=== PATIENT | male | born 1975 | race African-American/Black ===

== ENCOUNTER 2022-10-06 11:22 | Inpatient (IN) | payer OTHER ==
[2022-10-06 12:15] VITALS: BMI 34.5
[2022-10-06] MEDS ORDERED: POLYETHYLENE GLYCOL (HEALTHYLAX) 3350 17 GM PACKET PO PRN (14:07)
[2022-10-06] MEDS ORDERED: ONDANSETRON *ODT* 4 MG TABLET SL PRN (14:07)
[2022-10-06] MEDS ORDERED: MAG HYDROX/AL HYDROX/SIMETH 30 ML UNIT-DOSE CUP PO PRN (14:07)
[2022-10-06] MEDS ORDERED: BENZOCAINE/MENTHOL (CHLORASEPTIC ) LOZENGE MM PRN (14:07)
[2022-10-06] MEDS ORDERED: IBUPROFEN 400 MG TABLET (FP) PO PRN (14:07)
[2022-10-06] MEDS ORDERED: NALOXONE HCL 0.4 MG/ML VIAL IM PRN (14:07)
[2022-10-06] MEDS ORDERED: LOPERAMIDE HCL 2 MG CAPSULE PO PRN (14:07)
[2022-10-06] MEDS ORDERED: BENZONATATE 200 MG CAPSULE PO PRN (14:07)
[2022-10-06] MEDS ORDERED: NALOXONE HCL (KLOXXADO) 8 MG SPRAY NS PRN (14:07)
[2022-10-06] MEDS ORDERED: ACETAMINOPHEN 325 MG TABLET (FP) PO PRN (14:07)
[2022-10-06] MEDS ORDERED: chlordiazePOXIDE HCL 25 MG CAPSULE PO PRN (14:07)
[2022-10-06] MEDS ORDERED: DICYCLOMINE HCL 10 MG CAPSULE PO PRN (14:07)
[2022-10-06] MEDS ORDERED: BISMUTH SUBSALICYLATE 524 MG/30 ML PO PRN (14:07)
[2022-10-06] MEDS ORDERED: guaiFENesin 600 MG TABLET.ER (FP) PO PRN (14:07)
[2022-10-06] MEDS ORDERED: MAGNESIUM HYDROX 2400MG/30ML ORAL SUSPENSION 30 ML CUP PO PRN (14:07)
[2022-10-06] MEDS ORDERED: NICOTINE 10 MG CARTRIDGE (INHALER) IH PRN (14:07)
[2022-10-06] MEDS ORDERED: IBUPROFEN 600 MG TABLET (FP) PO ONE (17:04)
[2022-10-06] MEDS: IBUPROFEN 600 MG TABLET (FP) PO PRN (17:07)
[2022-10-06] MEDS: chlordiazePOXIDE HCL 25 MG CAPSULE PO SCH ×2 (17:12→22:23)
[2022-10-06] MEDS: PRENATAL VITAMINS W/ FOLIC ACID TABLET (FP) PO SCH (17:51)
[2022-10-06 18:15] LABS: HEMATOCRIT 40.3 % (35.4-49); HEMOGLOBIN 13.9 GM/dL (11.7-16.9); MCH 30.6 pg (25.7-33.7); MCHC 34.5 g/dl (32.0-35.9); MEAN CELL VOLUME 88.6 fl (80-96); MEAN PLT VOLUME 9.6 fl (7.5-11.1); PLATELET COUNT 169 10^3/uL (134-434); RBC 4.55 M/mm3 (4.00-5.60); RDW 14.4 % (11.9-15.9); WHITE BLOOD COUNT 5.8 K/mm3 (4.0-10.0)
[2022-10-06 18:26] LABS: CALCIUM 8.3 mg/dL (8.5-10.1)
[2022-10-06 18:27] LABS: ALBUMIN 3.1 g/dl (3.4-5.0); BLOOD UREA NITROGEN 16.5 mg/dL (7-18)
[2022-10-06 18:30] LABS: CREATININE 1.2 mg/dL (0.55-1.3)
[2022-10-06 18:32] LABS: BILIRUBIN,TOTAL 0.3 mg/dL (0.2-1); TOT PROT 6.3 g/dl (6.4-8.2)
[2022-10-06] MEDS: MELATONIN 5 MG TABLETS PO SCH (22:22)
[2022-10-06] MEDS: THIAMINE HCL 100 MG TABLET (FP) PO SCH (22:22)
[2022-10-07] MEDS: chlordiazePOXIDE HCL 25 MG CAPSULE PO SCH ×3 (06:00→17:25)
[2022-10-07] MEDS: PRENATAL VITAMINS W/ FOLIC ACID TABLET (FP) PO SCH (11:21)
[2022-10-07] MEDS: METHOCARBAMOL 500 MG TABLET PO PRN (11:21)
[2022-10-07] MEDS: THIAMINE HCL 100 MG TABLET (FP) PO SCH (22:37)
[2022-10-07] MEDS: MELATONIN 5 MG TABLETS PO SCH (22:37)
[2022-10-08] MEDS: chlordiazePOXIDE HCL 25 MG CAPSULE PO SCH ×5 (00:11→22:46)
[2022-10-08] MEDS: METHOCARBAMOL 500 MG TABLET PO PRN ×2 (08:55→22:26)
[2022-10-08] MEDS: IBUPROFEN 600 MG TABLET (FP) PO PRN (08:55)
[2022-10-08] MEDS: PRENATAL VITAMINS W/ FOLIC ACID TABLET (FP) PO SCH (10:25)
[2022-10-08] MEDS: PANTOPRAZOLE 20 MG TABLET PO SCH (16:54)
[2022-10-08] MEDS: hydrOXYzine PAMOATE 25 MG CAPSULE (FP) PO PRN (22:24)
[2022-10-08] MEDS: THIAMINE HCL 100 MG TABLET (FP) PO SCH (22:24)
[2022-10-08] MEDS: MELATONIN 5 MG TABLETS PO SCH (22:24)
[2022-10-09] MEDS ORDERED: chlordiazePOXIDE HCL 10 MG CAPSULE PO PRN
[2022-10-09] MEDS: chlordiazePOXIDE HCL 10 MG CAPSULE PO SCH ×4 (05:57→23:11)
[2022-10-09] MEDS: PRENATAL VITAMINS W/ FOLIC ACID TABLET (FP) PO SCH (10:00)
[2022-10-09] MEDS: PANTOPRAZOLE 20 MG TABLET PO SCH (10:00)
[2022-10-09] MEDS ORDERED: PANTOPRAZOLE 20 MG TABLET PO SCH (14:00)
[2022-10-09] MEDS ORDERED: PATIENT'S OWN MEDICATION (NON-FORMULARY) (Omeprazole 40 MG) PO ONE ×2 (14:47)
[2022-10-09] MEDS ORDERED: BACITRACIN 0.9 GM PACKET TP ONE (14:52)
[2022-10-09] MEDS: hydrOXYzine PAMOATE 25 MG CAPSULE (FP) PO PRN (17:53)
[2022-10-09] MEDS: BACITRACIN 0.9 GM PACKET TP SCH (23:12)
[2022-10-09] MEDS: MELATONIN 5 MG TABLETS PO SCH (23:12)
[2022-10-09] MEDS: THIAMINE HCL 100 MG TABLET (FP) PO SCH (23:12)
[2022-10-10] MEDS: chlordiazePOXIDE HCL 10 MG CAPSULE PO SCH ×2 (06:00→18:08)
[2022-10-10] MEDS: OMEPRAZOLE PO SCH (06:01)
[2022-10-10] MEDS: PRENATAL VITAMINS W/ FOLIC ACID TABLET (FP) PO SCH (10:50)
[2022-10-10] MEDS: BACITRACIN 0.9 GM PACKET TP SCH ×2 (10:50→22:09)
[2022-10-10 13:45] VITALS: RESP 18
[2022-10-10] MEDS: THIAMINE HCL 100 MG TABLET (FP) PO SCH (22:08)
[2022-10-11] MEDS ORDERED: chlordiazePOXIDE HCL 10 MG CAPSULE PO ONE (05:00)
[2022-10-11] MEDS: OMEPRAZOLE PO SCH (06:34)
[2022-10-11 09:26] VITALS: BP 149/93; PULSE 72; TEMP 97.6
[2022-10-11] MEDS: BACITRACIN 0.9 GM PACKET TP SCH (10:25)
[2022-10-11] MEDS: PRENATAL VITAMINS W/ FOLIC ACID TABLET (FP) PO SCH (10:25)
== END 2022-10-11 09:44 | disposition home or self-care (01) | DRG 773 ==
LOC: YASAS 11:22 → Y6N 16:50
PROVIDERS: ADMIT Allergy & Immunology; ATTEND Psychiatry & Neurology Pain Medicine
PROC: HZ2ZZZZ Detoxification Services for Substance Abuse Treatment (ICD-10-PCS; principal; 2022-10-06)
DX: F10.230 Alcohol dependence with withdrawal, uncomplicated (principal); F11.20 Opioid dependence, uncomplicated; F14.20 Cocaine dependence, uncomplicated; F17.210 Nicotine dependence, cigarettes, uncomplicated
CPT/HCPCS: 36415; 80053; 85027; 86780; C9803-CS; U0003; U0005

== ENCOUNTER 2024-07-10 11:18 | Inpatient (IN) | payer OTHER ==
[2024-07-10 11:53] VITALS: BMI 34.9
[2024-07-10] MEDS ORDERED: BISMUTH SUBSALICYLATE 524 MG/30 ML PO PRN (12:15)
[2024-07-10] MEDS ORDERED: guaiFENesin 600 MG TABLET.ER (FP) PO PRN (12:15)
[2024-07-10] MEDS ORDERED: P-EPHED 60MG/TRIPROLIDI 2.5MG TABLET PO PRN (12:15)
[2024-07-10] MEDS ORDERED: MAGNESIUM HYDROX 2400MG/30ML ORAL SUSPENSION 30 ML CUP PO PRN (12:15)
[2024-07-10] MEDS ORDERED: POLYETHYLENE GLYCOL (HEALTHYLAX) 3350 17 GM PACKET PO PRN (12:15)
[2024-07-10] MEDS ORDERED: NICOTINE POLACRILEX 2 MG LOZENGE BC PRN (12:15)
[2024-07-10] MEDS ORDERED: METHOCARBAMOL 500 MG TABLET PO PRN (12:15)
[2024-07-10] MEDS ORDERED: MAG HYDROX/AL HYDROX/SIMETH 30 ML UNIT-DOSE CUP PO PRN (12:15)
[2024-07-10] MEDS ORDERED: BENZONATATE 200 MG CAPSULE PO PRN (12:15)
[2024-07-10] MEDS ORDERED: BENZOCAINE/MENTHOL (CHLORASEPTIC ) LOZENGE MM PRN (12:15)
[2024-07-10] MEDS ORDERED: LOPERAMIDE HCL 2 MG CAPSULE PO PRN (12:15)
[2024-07-10] MEDS ORDERED: IBUPROFEN 400 MG TABLET (FP) PO PRN (12:15)
[2024-07-10] MEDS ORDERED: NICOTINE POLACRILEX 2 MG GUM BUC PRN (12:15)
[2024-07-10] MEDS: diazePAM 5 MG TABLET PO PRN (13:00)
[2024-07-10] MEDS ORDERED: diazePAM 5 MG TABLET ONE (13:00)
[2024-07-10] MEDS: PANTOPRAZOLE 20 MG TABLET PO SCH ×2 (13:51→14:15)
[2024-07-10] MEDS: ONDANSETRON *ODT* 4 MG TABLET SL PRN (15:01)
[2024-07-10] MEDS: diazePAM 5 MG TABLET PO SCH (17:16)
[2024-07-10] MEDS: DICYCLOMINE HCL 10 MG CAPSULE PO PRN (17:17)
[2024-07-10] MEDS: THIAMINE 100 MG TABLET PO SCH (22:11)
[2024-07-10] MEDS: MELATONIN 5 MG TABLETS PO SCH (22:11)
[2024-07-10] MEDS: hydrOXYzine PAMOATE 25 MG CAPSULE (FP) PO PRN (23:36)
[2024-07-10] MEDS: ACETAMINOPHEN 325 MG TABLET (FP) PO PRN (23:36)
[2024-07-10] MEDS: TRIMETHOBENZAMIDE HCL 200MG/2ML INJ IM ONE (23:47)
[2024-07-11 10:42] LABS: HEMATOCRIT 41.1 % (35.4-49); HEMOGLOBIN 14.1 GM/dL (11.7-16.9); MCH 31.8 pg (25.7-33.7); MCHC 34.4 g/dl (32.0-35.9); MEAN CELL VOLUME 92.6 fl (80-96); MEAN PLT VOLUME 8.7 fl (7.5-11.1); PLATELET COUNT 180 10^3/uL (134-434); RBC 4.43 M/mm3 (4.00-5.60); RDW 13.5 % (11.9-15.9); WHITE BLOOD COUNT 5.7 K/mm3 (4.0-10.0)
[2024-07-11 10:43] LABS: CHLORIDE 106 mmol/L (98-107); POTASSIUM 3.6 mmol/L (3.5-5.1); SODIUM 139 mmol/L (136-145)
[2024-07-11 10:54] LABS: ALBUMIN 3.1 g/dl (3.4-5.0); ANION GAP 6 mmol/L (4-13); BLOOD UREA NITROGEN 18.8 mg/dL (7-18); CALCIUM 8.7 mg/dL (8.5-10.1); CO2 26 mmol/L (21-32)
[2024-07-11 10:55] LABS: GLUCOSE,RANDOM 122 mg/dL (74-106)
[2024-07-11] MEDS: PRENATAL VITAMINS W/ FOLIC ACID TABLET (FP) PO SCH (10:55)
[2024-07-11 10:58] LABS: CREATININE 1.1 mg/dL (0.55-1.3); SGOT/AST 21 U/L (15-37); SGPT/ALT 48 U/L (13-61)
[2024-07-11 10:59] LABS: BILIRUBIN,TOTAL 0.7 mg/dL (0.2-1); TOT PROT 6.1 g/dl (6.4-8.2)
[2024-07-11 11:00] LABS: ALK PHOS 51 U/L (45-117)
[2024-07-11] MEDS: IBUPROFEN 600 MG TABLET (FP) PO PRN (11:06)
[2024-07-11 20:58] VITALS: TEMP 97.6
[2024-07-11 22:39] VITALS: BP 148/79; PULSE 79; RESP 18
[2024-07-12] MEDS: diazePAM 5 MG TABLET PO SCH (06:07)
[2024-07-13] MEDS ORDERED: diazePAM 5 MG TABLET PO SCH (06:00)
[2024-07-14] MEDS ORDERED: diazePAM 5 MG TABLET PO ONE (06:00)
== END 2024-07-12 08:32 | disposition short-term general hospital (02) | DRG 774 ==
LOC: YASAS 11:18 → Y6N 13:19
PROVIDERS: ADMIT Allergy & Immunology; ATTEND Allergy & Immunology
PROC: HZ2ZZZZ Detoxification Services for Substance Abuse Treatment (ICD-10-PCS; principal; 2024-07-10)
DX: F10.230 Alcohol dependence with withdrawal, uncomplicated (principal); F14.20 Cocaine dependence, uncomplicated; F17.210 Nicotine dependence, cigarettes, uncomplicated; F31.9 Bipolar disorder, unspecified; F43.10 Post-traumatic stress disorder, unspecified; K92.0 Hematemesis; K92.1 Melena; K21.9 Gastro-esophageal reflux disease without esophagitis; Z56.0 Unemployment, unspecified; Z59.00 Homelessness unspecified
CPT/HCPCS: 36415; 80053; 80305; 80307; 85027; 86780; 93005; 93010; Q0162

== ENCOUNTER 2024-07-11 23:40 | Inpatient (IN) | payer OTHER ==
[2024-07-12 00:11] VITALS: BMI 35.2
[2024-07-12] MEDS ORDERED: ACETAMINOPHEN INJECTION 100 ML ONE (01:08)
[2024-07-12] MEDS ORDERED: PANTOPRAZOLE SODIUM 80 MG/200 ML BAG IVPB ONE (01:08)
[2024-07-12] MEDS: ACETAMINOPHEN 1000 MG/100 ML BAG IVPB ONE (01:27)
[2024-07-12 01:37] LABS: BASO % 0.8 % (0-2.0); EOS % 1.8 % (0-4.5); HEMATOCRIT 40.2 % (35.4-49); HEMOGLOBIN 13.8 GM/dL (11.7-16.9); MCH 31.4 pg (25.7-33.7); MCHC 34.4 g/dl (32.0-35.9); MEAN CELL VOLUME 91.2 fl (80-96); MEAN PLT VOLUME 8.3 fl (7.5-11.1); NEUT % 52.4 % (42.8-82.8); PLATELET COUNT 199 10^3/uL (134-434); RBC 4.41 M/mm3 (4.00-5.60); RDW 13.4 % (11.9-15.9); WHITE BLOOD COUNT 6.5 K/mm3 (4.0-10.0)
[2024-07-12 01:55] LABS: POTASSIUM 4.5 mmol/L (3.5-5.1)
[2024-07-12 01:58] LABS: ALBUMIN 3.4 g/dl (3.4-5.0); CALCIUM 8.9 mg/dL (8.5-10.1)
[2024-07-12 01:59] LABS: BLOOD UREA NITROGEN 17.6 mg/dL (7-18)
[2024-07-12 02:03] LABS: BILIRUBIN,TOTAL 0.2 mg/dL (0.2-1); TOT PROT 6.9 g/dl (6.4-8.2)
[2024-07-12] MEDS: PANTOPRAZOLE SODIUM 40 MG VIAL IVPUSH ONE (02:14)
[2024-07-12] MEDS: LACTATED RINGERS SOLUTION 1000 ML INFUS.BAG IV ONE (03:38)
[2024-07-12 04:56] LABS: BASO % 0.7 % (0-2.0); EOS % 1.7 % (0-4.5); HEMATOCRIT 38.6 % (35.4-49); HEMOGLOBIN 13.3 GM/dL (11.7-16.9); LYMPH % 36.7 % (8-40); MCH 31.5 pg (25.7-33.7); MCHC 34.5 g/dl (32.0-35.9); MEAN CELL VOLUME 91.3 fl (80-96); MEAN PLT VOLUME 8.1 fl (7.5-11.1); MONO % 8.3 % (3.8-10.2); NEUT % 52.6 % (42.8-82.8); PLATELET COUNT 185 10^3/uL (134-434); RBC 4.23 M/mm3 (4.00-5.60); RDW 13.6 % (11.9-15.9); WHITE BLOOD COUNT 6.4 K/mm3 (4.0-10.0)
[2024-07-12 05:12] LABS: INR 0.98 (0.83-1.09); PROTHROMBIN TIME (PATIENT) 11.1 SEC (9.7-13.0)
[2024-07-12] MEDS ORDERED: diazePAM 5 MG TABLET PO PRN (05:21)
[2024-07-12] MEDS ORDERED: diazePAM CARPU-JECT 10 MG/2 ML DISP.SYRIN IVPUSH PRN ×2 (05:26→06:55)
[2024-07-12] MEDS ORDERED: ONDANSETRON 4 MG/2 ML VIAL IVPUSH PRN (05:28)
[2024-07-12 05:48] VITALS: RESP 18
[2024-07-12] MEDS: SODIUM CHLORIDE 1,000 ML IV SCH (05:57)
[2024-07-12] MEDS: morphine CARPU-JECT 4 MG/1 ML DISP.SYRIN IVPUSH ONE (06:41)
[2024-07-12] MEDS: DEXTROSE 5%-0.45% SALINE 1,000 ML IV SCH (06:41)
[2024-07-12] MEDS: diazePAM CARPU-JECT 10 MG/2 ML DISP.SYRIN IVPUSH ONE ×3 (06:58→16:14)
[2024-07-12] MEDS ORDERED: NICOTINE POLACRILEX 2 MG LOZENGE BC PRN (07:21)
[2024-07-12] MEDS: PANTOPRAZOLE SODIUM 40 MG VIAL IVPUSH SCH (09:15)
[2024-07-12] MEDS: THIAMINE HCL 200 MG/2 ML VIAL IVPB SCH (09:15)
[2024-07-12] MEDS: NICOTINE 21 MG/24 HOURS TOPICAL PATCH TD SCH (09:15)
[2024-07-12 15:55] VITALS: BP 129/74; PULSE 55; TEMP 98.4
[2024-07-12 16:31] LABS: HEMATOCRIT 42.3 % (35.4-49); HEMOGLOBIN 14.1 GM/dL (11.7-16.9); MCH 30.9 pg (25.7-33.7); MCHC 33.3 g/dl (32.0-35.9); MEAN CELL VOLUME 92.6 fl (80-96); MEAN PLT VOLUME 8.6 fl (7.5-11.1); PLATELET COUNT 212 10^3/uL (134-434); RBC 4.56 M/mm3 (4.00-5.60); RDW 13.1 % (11.9-15.9); WHITE BLOOD COUNT 6.1 K/mm3 (4.0-10.0)
[2024-07-12] MEDS ORDERED: diazePAM CARPU-JECT 10 MG/2 ML DISP.SYRIN IVPUSH ONE (22:00)
[2024-07-13] MEDS ORDERED: diazePAM 5 MG TABLET PO SCH (06:00)
[2024-07-14] MEDS ORDERED: diazePAM 5 MG TABLET PO SCH (06:00)
[2024-07-15] MEDS ORDERED: diazePAM 5 MG TABLET PO ONE (06:00)
== END 2024-07-12 19:58 | disposition other institution (70) | DRG 244 ==
LOC: JER 23:40 → JERBED 07-12 05:12
PROVIDERS: ADMIT Internal Medicine; ATTEND Physician Assistant
DX: K57.31 Diverticulosis of large intestine without perforation or abscess with bleeding (principal); K92.0 Hematemesis; K21.9 Gastro-esophageal reflux disease without esophagitis; F10.230 Alcohol dependence with withdrawal, uncomplicated; F41.9 Anxiety disorder, unspecified; F17.210 Nicotine dependence, cigarettes, uncomplicated
CPT/HCPCS: 36415; 71046-TC-FY; 74174-TC; 80053; 82272; 83690; 85025; 85027; 85610; 86850; 86900; 86901; 93005; 93010; 99285-25; J0131

== ENCOUNTER 2024-07-12 20:04 | Inpatient (IN) | payer OTHER ==
[2024-07-12] MEDS ORDERED: diazePAM 5 MG TABLET PO PRN (21:17)
[2024-07-12] MEDS ORDERED: MAGNESIUM HYDROX 2400MG/30ML ORAL SUSPENSION 30 ML CUP PO PRN (21:19)
[2024-07-12] MEDS ORDERED: BISMUTH SUBSALICYLATE 524 MG/30 ML PO PRN (21:19)
[2024-07-12] MEDS ORDERED: hydrOXYzine PAMOATE 25 MG CAPSULE (FP) PO PRN (21:19)
[2024-07-12] MEDS ORDERED: ONDANSETRON *ODT* 4 MG TABLET SL PRN (21:19)
[2024-07-12] MEDS ORDERED: POLYETHYLENE GLYCOL (HEALTHYLAX) 3350 17 GM PACKET PO PRN (21:19)
[2024-07-12] MEDS ORDERED: NICOTINE POLACRILEX 2 MG GUM BUC PRN (21:19)
[2024-07-12] MEDS ORDERED: ACETAMINOPHEN 325 MG TABLET (FP) PO PRN (21:19)
[2024-07-12] MEDS ORDERED: BENZOCAINE/MENTHOL (CHLORASEPTIC ) LOZENGE MM PRN (21:19)
[2024-07-12] MEDS ORDERED: DICYCLOMINE HCL 10 MG CAPSULE PO PRN (21:19)
[2024-07-12] MEDS ORDERED: BENZONATATE 200 MG CAPSULE PO PRN (21:19)
[2024-07-12] MEDS ORDERED: LOPERAMIDE HCL 2 MG CAPSULE PO PRN (21:19)
[2024-07-12] MEDS ORDERED: NICOTINE POLACRILEX 2 MG LOZENGE BC PRN (21:19)
[2024-07-12 21:59] VITALS: BMI 34.9
[2024-07-12] MEDS: diazePAM 5 MG TABLET PO SCH (22:42)
[2024-07-12] MEDS: THIAMINE 100 MG TABLET PO SCH (22:42)
[2024-07-12] MEDS: METHOCARBAMOL 500 MG TABLET PO PRN (22:42)
[2024-07-12] MEDS: MELATONIN 5 MG TABLETS PO SCH (22:42)
[2024-07-13] MEDS: MAG HYDROX/AL HYDROX/SIMETH 30 ML UNIT-DOSE CUP PO PRN (01:14)
[2024-07-13] MEDS: diazePAM 5 MG TABLET PO SCH (06:05)
[2024-07-13] MEDS: PRENATAL VITAMINS W/ FOLIC ACID TABLET (FP) PO SCH (09:29)
[2024-07-13] MEDS: guaiFENesin 600 MG TABLET.ER (FP) PO PRN (09:29)
[2024-07-13] MEDS: NALTREXONE HCL 50 MG TABLET PO ONE (10:16)
[2024-07-13 20:47] VITALS: PULSE 63; TEMP 96.8
[2024-07-14] MEDS: diazePAM 5 MG TABLET PO ONE (05:44)
[2024-07-14] MEDS: ACETAMINOPHEN 325 MG TABLET (FP) PO PRN (05:59)
[2024-07-14 06:22] VITALS: BP 134/84; RESP 17
[2024-07-14] MEDS: NALTREXONE HCL 50 MG TABLET PO SCH (07:11)
== END 2024-07-14 09:47 | disposition home or self-care (01) | DRG 774 ==
LOC: YASAS 20:04 → Y6N 21:59
PROVIDERS: ADMIT Allergy & Immunology; ATTEND Surgery
PROC: HZ2ZZZZ Detoxification Services for Substance Abuse Treatment (ICD-10-PCS; principal; 2024-07-12)
DX: F10.230 Alcohol dependence with withdrawal, uncomplicated (principal); F14.20 Cocaine dependence, uncomplicated; F17.210 Nicotine dependence, cigarettes, uncomplicated; F31.9 Bipolar disorder, unspecified; K92.0 Hematemesis; K92.1 Melena; K21.9 Gastro-esophageal reflux disease without esophagitis; Z59.00 Homelessness unspecified
CPT/HCPCS: 80305; 80307